=== PATIENT | male | born 1990 | race Two or more races ===

== ENCOUNTER 2019-12-04 20:18 | Emergency (ER) | payer SELFPAY ==
[~2019-12-04] VITALS: Ht 175.3 cm; Wt 93.0 kg
[2019-12-04 20:30] VITALS: BP 142/82
--- NOTE | 2019-12-04 20:30 | NUR ---
ED Nurse Note: Patient walked in from home d/t fever, cough, sore throat, swallowing difficulties. Patient aao x 4 and ambulatory. Patient c/o generalized pain 04/25. Patient stable upon assessment.
--- NOTE | 2019-12-04 20:46 | Emergency Room Report ---
History of Present Illness General Chief Complaint: Flu Like Symptoms Source: Patient Present Illness HPI 29-year-old male with no significant medical history here complaining of 2 days of generalized body ache, fever and chills, cough and congestion. Denies recent travel, abdominal pain, nausea vomiting, sore throat. Has not taken medication for symptom relief. Denies tobacco smoke, drug use, chest pain, shortness of breath, palpitation, and other associated symptoms. Appears to be stable with slightly elevated temperature of 100 F. Allergies: Coded Allergies: No Known Allergies (Unverified , 12/04/19) Patient History Past Medical History: see triage record Past Surgical History: none Pertinent Family History: none Immunizations: UTD Reviewed Nursing Documentation: PMH: Agreed; PSxH: Agreed Nursing Documentation-PMH Past Medical History: No Stated History Review of Systems All Other Systems: negative except mentioned in HPI Physical Exam Vital Signs Date Time Temp Pulse Resp B/P (MAP) Pulse Ox O2 Delivery O2 Flow Rate FiO2 12/04/19 20:22 100.2 90 18 139/75 (96) 92 Room Air Sp02 EP Interpretation: reviewed, normal General Appearance: no apparent distress, alert, GCS 15, non-toxic Head: normocephalic, atraumatic Eyes: bilateral eye normal inspection, bilateral eye PERRL ENT: hearing grossly normal, normal pharynx, no angioedema, normal voice Neck: full range of motion, supple, no meningismus, supple/symm/no masses Respiratory: chest non-tender, lungs clear, normal breath sounds, no rhonchi, no retraction, no wheezing, speaking full sentences Cardiovascular #1: regular rate, rhythm, no edema, no murmur Gastrointestinal: normal bowel sounds, non tender, soft, non-distended, no guarding, no rebound Rectal: deferred Genitourinary: no CVA tenderness Musculoskeletal: back normal, normal range of motion, gait/station normal, non- tender Neurologic: alert, motor strength/tone normal, oriented x3, sensory intact, responsive, speech normal Psychiatric: judgement/insight normal, memory normal, mood/affect normal, no suicidal/homicidal ideation Skin: no rash Lymphatic: no adenopathy Medical Decision Making PA Attestation All my diagnosis and treatment plans were reviewed ad discussed with my supervising physician Dr. Moss Diagnostic Impression: Primary Impression: Flu-like symptoms ER Course 29-year-old male with no significant medical history here complaining of 2 days of generalized body ache, fever and chills, cough and congestion. Denies recent travel, abdominal pain, nausea vomiting, sore throat. Has not taken medication for symptom relief. Denies tobacco smoke, drug use, chest pain, shortness of breath, palpitation, and other associated symptoms. Appears to be stable with slightly elevated temperature of 100 F. Ddx considered but are not limited to: strep pharyngitis, URI, tonsillitis, peritonsillar abscess, influneza Vital signs: are WNL, pt. is afebrile H&PE are most consistent with: Flulike symptoms ORDERS: Tamiflu, guaifenesin, Motrin ED INTERVENTIONS: Motrin DISCHARGE: At this time pt. is stable for d/c to home. Will provide printed patient care instructions, and any necessary prescriptions. Care plan and follow up instructions have been discussed with the patient prior to discharge. Take medication as directed, follow-up with your primary care provider, increase oral hydration, if worsening symptoms return to the emergency room Last Vital Signs Date Time Temp Pulse Resp B/P (MAP) Pulse Ox O2 Delivery O2 Flow Rate FiO2 12/04/19 20:22 100.2 90 18 139/75 (96) 92 Room Air Disposition: HOME, SELF-CARE Condition: Stable Scripts Ibuprofen* (MOTRIN*) 600 Mg Tablet 600 MG ORAL Q8H PRN for For Pain, #30 TAB 0 Refills Prov: Xi Erickson 12/04/19 Guaifenesin* (GUAIFENESIN*) 100 Mg/5 Ml Liquid 15 ML ORAL Q6H, #120 ML 0 Refills Prov: Xi Erickson 12/04/19 Oseltamivir Phosphate (Tamiflu) 75 Mg Capsule 75 MG ORAL TWICE A DAY for 5 Days, #10 CAP Prov: Xi Erickson 12/04/19 Additional Instructions: Take medication as directed, follow-up with your primary care provider, increase oral hydration, if worsening symptoms return to the emergency room Xi Erickson Dec 04, 2019 20:46
[2019-12-04] MEDS ORDERED: GUAIFENESI100 MG/5 M ORAL (20:47)
[2019-12-04] MEDS ORDERED: TAMIFLU75 MG ORAL (20:47)
[2019-12-04] MEDS ORDERED: IBUPROFEN600 MG ORAL (20:47)
[2019-12-04 20:58] VITALS: BP 139/86
--- NOTE | 2019-12-04 20:58 | NUR ---
ER DISCHARGE NOTE: Patient is cleared to be discharged per ERMD, pt is aox4, on room air, with stable vital signs. pt was given dc and prescription instructions, pt was able to verbalize understanding, pt id band removed. pt is able to ambulate with steady gait. pt took all belongings. pt stable upon discharge.
== END 2019-12-04 20:58 | disposition home or self-care (01) ==
LOC: EMR 20:42
DX: J11.1 Influenza due to unidentified influenza virus with other respiratory manifestations (principal)
CPT/HCPCS: 99282